=== PATIENT | male | born 1975 | race Hispanic/Latino ===

== ENCOUNTER → 2020-01-29 | Outpatient (CLI) | payer OTHER ==
[~2020-01-29] MED LIST: LISI-613 PO; PRAV20TA4 PO
== END | disposition home or self-care (01) ==
LOC: RAH 08:59
PROVIDERS: ATTEND Internal Medicine Cardiovascular Disease
DX: Z13.6 Encounter for screening for cardiovascular disorders (principal)
CPT/HCPCS: 75571

== ENCOUNTER 2021-02-16 06:15 | Day surgery (SDC) | payer OTHER ==
[2021-02-15 12:10] VITALS: BP 145/89
[2021-02-16] VITALS (11 sets, daily range): BP systolic 94–158; BP diastolic 60–99
[~2021-02-16] VITALS: Ht 167.6 cm; Wt 103.4 kg
[~2021-02-16 06:15] MED LIST changes: +CEFAZOLIN SODIUM 1 GM VIAL IVP SCH; +IBUP-2482 PO; -LISI-613 PO; +LISI1TAB32 PO
[2021-02-16] MEDS ORDERED: LACTATED RINGERS 1000ML 1,000 ML IV ONE (06:42)
[2021-02-16] MEDS ORDERED: PROPOFOL 10 MG/ML 20ML VIAL IV ONE (07:27)
[2021-02-16] MEDS ORDERED: FENTANYL CITRATE PF 50 MCG/1 ML 2ML VIAL ONE (07:27)
[2021-02-16] MEDS ORDERED: DEXAMETHASONE SOD PHOSPHATE 10MG/ML 1ML VIAL ONE (07:27)
[2021-02-16] MEDS ORDERED: MIDAZOLAM HCL 1 MG/ML 2ML VIAL ONE ×2 (07:27→08:25)
[2021-02-16] MEDS ORDERED: ONDANSETRON HCL 4 MG/2 ML VIAL ONE (07:27)
[2021-02-16] MEDS ORDERED: LIDOCAINE PF 2% 5ML ABBOJECT ONE (07:27)
[2021-02-16] MEDS ORDERED: MEPERIDINE-PF 25 MG/ML SYG ONE (07:31)
[2021-02-16] MEDS ORDERED: BUPIVACAINE/PF 0.5% 10ML VIAL ONE (07:58)
[2021-02-16] MEDS ORDERED: IOPAMIDOL 10 ML VIAL ONE (08:23)
== END 2021-02-16 10:00 | disposition home or self-care (01) ==
LOC: DAH 06:15
PROVIDERS: ATTEND Orthopaedic Surgery
DX: M16.51 Unilateral post-traumatic osteoarthritis, right hip (principal); M25.851 Other specified joint disorders, right hip; Z20.822 Contact with and (suspected) exposure to COVID-19; G89.29 Other chronic pain; I10 Essential (primary) hypertension; E66.01 Morbid (severe) obesity due to excess calories; G47.33 Obstructive sleep apnea (adult) (pediatric); Z83.3 Family history of diabetes mellitus; Z88.8 Allergy status to other drugs, medicaments and biological substances; Z90.49 Acquired absence of other specified parts of digestive tract; Z82.49 Family history of ischemic heart disease and other diseases of the circulatory system; Z72.89 Other problems related to lifestyle; Z87.891 Personal history of nicotine dependence
CPT/HCPCS: 20610; 73503; 77002; A4215; A4221; A4222; A4223 ×2; A4663; C9803; J0690; J1030; J1100; J2001; J2175; J2250 ×2; J2405; J2704; J3010; J3490; J7120; Q9966; U0003

== ENCOUNTER 2022-05-22 07:26 | Day surgery (SDC) | payer OTHER ==
[2022-05-19 09:59] LABS: BASOPHILS % (AUTO) 1.2 % (0.0-5.0); EOSINOPHILS % (AUTO) 1.6 % (0.0-8.0); HEMATOCRIT 44.7 % (42-54); LYMPHOCYTES % (AUTO) 32.6 % (21.0-51.0); MEAN CORPUSCULAR HEMOGLOBIN 28.9 pg (27.0-33.0); MEAN CORPUSCULAR HGB CONC 34.5 g/dL (32.0-36.0); MONOCYTES % (AUTO) 7.6 % (3.0-13.0); NEUTROPHILS % (AUTO) 56.8 % (40.0-77.0); PLATELET COUNT (AUTO) 269 K/uL (130-400); RED BLOOD CELL COUNT(AUTO) 5.32 MIL/uL (4.50-6.20); RED CELL DISTRIBUTION WIDTH 12.7 % (11.0-15.5); WHITE BLOOD COUNT (AUTO) 5.8 K/uL (4.8-10.8)
[2022-05-19 10:15] LABS: CREATININE 0.9 mg/dL (0.5-1.5); POTASSIUM 4.6 mmol/L (3.5-5.1)
[2022-05-19 10:20] VITALS: BP 197/108
[2022-05-22] VITALS (10 sets, daily range): BP systolic 134–184; BP diastolic 82–118
[~2022-05-22] VITALS: Ht 167.6 cm; Wt 101.0 kg
[~2022-05-22 07:26] MED LIST changes: +BUPIVACAINE/PF 0.5% 30ML VIAL ONE; +CARB1DRO40 OP; +CARV25TA PO; -IBUP-2482 PO; +ISOS60TA77 PO; +KETO5DRO6 OP; +LIDOCAINE HCL 1% 20 ML VIAL ONE; -LISI1TAB32 PO; +LOSA50TA64 PO; -PRAV20TA4 PO; +diclofenac TP
[2022-05-22] MEDS ORDERED: IOPAMIDOL 10 ML VIAL ONE (07:53)
[2022-05-22] MEDS ORDERED: LACTATED RINGERS 1000ML 1,000 ML IV ONE (08:08)
[2022-05-22] MEDS ORDERED: FENTANYL CITRATE PF 50 MCG/1 ML 2ML VIAL ONE (08:37)
[2022-05-22] MEDS ORDERED: PROPOFOL 10 MG/ML 20ML VIAL IV ONE (08:37)
[2022-05-22] MEDS ORDERED: MIDAZOLAM HCL 1 MG/ML 2ML VIAL ONE (08:37)
[2022-05-22] MEDS ORDERED: VANCOMYCIN 1G VIAL ONE (09:58)
== END 2022-05-22 10:10 | disposition home or self-care (01) ==
LOC: DAH 07:26
PROVIDERS: ATTEND Orthopaedic Surgery
DX: M16.51 Unilateral post-traumatic osteoarthritis, right hip (principal); G89.29 Other chronic pain; I10 Essential (primary) hypertension; G47.33 Obstructive sleep apnea (adult) (pediatric); Z90.49 Acquired absence of other specified parts of digestive tract; Z98.890 Other specified postprocedural states; Z87.891 Personal history of nicotine dependence; Z82.49 Family history of ischemic heart disease and other diseases of the circulatory system; Z83.3 Family history of diabetes mellitus
CPT/HCPCS: 87426; 80048; 85025; 36415; 20610; 73503; J7120; J3370; J3010; J0690; J2250; J2704; J1030; J3490; Q9966; A5120; A4215; A4223; A4222; A4221

== ENCOUNTER 2023-03-30 05:52 | Day surgery (SDC) | payer OTHER ==
[2023-03-28 09:32] LABS: BASOPHILS % (AUTO) 1.2 % (0.0-5.0); EOSINOPHILS % (AUTO) 1.7 % (0.0-8.0); LYMPHOCYTES % (AUTO) 35.5 % (21.0-51.0); MEAN CORPUSCULAR HEMOGLOBIN 29.1 pg (27.0-33.0); MEAN CORPUSCULAR HGB CONC 34.4 g/dL (32.0-36.0); MEAN CORPUSCULAR VOLUME 84.6 fL (79-99); MONOCYTES % (AUTO) 9.2 % (3.0-13.0); NEUTROPHILS % (AUTO) 51.8 % (40.0-77.0); PLATELET COUNT (AUTO) 249 K/uL (130-400); RED BLOOD CELL COUNT(AUTO) 5.08 MIL/uL (4.50-6.20); RED CELL DISTRIBUTION WIDTH 13.1 % (11.0-15.5); WHITE BLOOD COUNT (AUTO) 5.2 K/uL (4.8-10.8)
[2023-03-28 09:39] LABS: ALBUMIN 3.5 g/dL (3.5-5.0); CARBON DIOXIDE 27 mmol/L (21-32); CHLORIDE 104 mmol/L (101-111); CREATININE 0.7 mg/dL (0.5-1.5); CRP QUANTITATIVE < 2.00 mg/L (0.00-9.0); GLOMERULAR FILTR. RATE CALC 115 mL/min (>90); GLUCOSE,RANDOM 113 mg/dL (70-105); POTASSIUM 4.1 mmol/L (3.5-5.1); SODIUM SERUM 139 mmol/L (136-145); UREA NITROGEN, BLOOD 11 mg/dL (7-18)
[2023-03-28 09:40] VITALS: BP 170/94
[2023-03-30] VITALS (13 sets, daily range): BP systolic 115–135; BP diastolic 51–86
[~2023-03-30] VITALS: Ht 167.6 cm; Wt 111.5 kg
[~2023-03-30 05:52] MED LIST changes: -BUPIVACAINE/PF 0.5% 30ML VIAL ONE; -CEFAZOLIN SODIUM 1 GM VIAL IVP SCH; +KETO-99 OP; -KETO5DRO6 OP; -LIDOCAINE HCL 1% 20 ML VIAL ONE
[2023-03-30] MEDS ORDERED: CEFAZOLIN SODIUM 2 GM VIAL ONE (06:20)
[2023-03-30] MEDS ORDERED: LACTATED RINGERS 1000ML 1,000 ML IV ONE (06:20)
[2023-03-30] MEDS ORDERED: AEC81 PO (06:40)
[2023-03-30] MEDS ORDERED: ROSU40TA21 PO (06:40)
[2023-03-30] MEDS ORDERED: AMLO-257 PO (06:40)
[2023-03-30] MEDS ORDERED: BUPIVACAINE/PF 0.25% 30ML VIAL IJ ONE (07:18)
[2023-03-30] MEDS ORDERED: LIDOCAINE PF 100MG/5ML (2%) SYRINGE 5ML ONE (07:38)
[2023-03-30] MEDS ORDERED: DEXAMETHASONE SOD PHOSPHATE 10MG/ML 1ML VIAL ONE (07:40)
[2023-03-30] MEDS ORDERED: MIDAZOLAM HCL 1 MG/ML 2ML VIAL ONE (07:40)
[2023-03-30] MEDS ORDERED: ONDANSETRON 4MG INJ ONE (07:40)
[2023-03-30] MEDS ORDERED: PROPOFOL 10 MG/ML 20ML VIAL IV ONE (07:40)
[2023-03-30] MEDS ORDERED: FENTANYL CITRATE PF 50 MCG/1 ML 2ML VIAL ONE (07:40)
[2023-03-30] MEDS ORDERED: LIDOCAINE HCL 1% 20 ML VIAL ONE (08:14)
[2023-03-30] MEDS ORDERED: IOHEXOL 180 MG/ML 20 ML VIAL ONE (08:43)
== END 2023-03-30 10:30 | disposition home or self-care (01) ==
LOC: DAH 05:52
PROVIDERS: ATTEND Student in an Organized Health Care Education/Training Program
DX: M16.4 Bilateral post-traumatic osteoarthritis of hip (principal); Z20.822 Contact with and (suspected) exposure to COVID-19; I10 Essential (primary) hypertension; G47.33 Obstructive sleep apnea (adult) (pediatric); E66.01 Morbid (severe) obesity due to excess calories; Z79.01 Long term (current) use of anticoagulants; Z79.899 Other long term (current) drug therapy; Z98.890 Other specified postprocedural states; Z90.49 Acquired absence of other specified parts of digestive tract; Z68.39 Body mass index [BMI] 39.0-39.9, adult; Z79.82 Long term (current) use of aspirin; Z82.49 Family history of ischemic heart disease and other diseases of the circulatory system; Z83.3 Family history of diabetes mellitus; Z87.891 Personal history of nicotine dependence
CPT/HCPCS: 87426; 82040; 80048; 85025; 84134; 86140; 36415; 20610; 77002; 73521; A4663; J7120; J3010; J1100; J3490; J2001; J2250; J2704; J2405; J1030 ×2; Q9965; J0690; A4215; A4223; A4222; A4221

== ENCOUNTER 2023-08-03 05:45 | Day surgery (SDC) | payer OTHER ==
[2023-08-01 09:20] VITALS: BP 208/107; PULSE 78; RESP 11
[2023-08-01 09:27] LABS: BASOPHILS # (AUTO) 0.08 K/uL (0.00-0.20); BASOPHILS % (AUTO) 1.5 % (0.0-5.0); EOSINOPHILS # (AUTO) 0.06 K/uL (0.00-0.70); EOSINOPHILS % (AUTO) 1.1 % (0.0-8.0); HEMATOCRIT 45.3 % (42-54); IMMATURE GRANULOCYTE ABSOLUTE 0.03 K/uL (0-1); LYMPHOCYTES # (AUTO) 1.6 K/uL (1.0-4.8); MEAN CORPUSCULAR HGB CONC 33.6 g/dL (32.0-36.0); MEAN CORPUSCULAR VOLUME 86.3 fL (79-99); MONOCYTES # (AUTO) 0.5 K/uL (0.1-1.0); MONOCYTES % (AUTO) 9.4 % (3.0-13.0); NEUTROPHILS # (AUTO) 3.2 K/uL (1.8-7.7); NEUTROPHILS % (AUTO) 58.4 % (40.0-77.0); PLATELET COUNT (AUTO) 265 K/uL (130-400); RED BLOOD CELL COUNT(AUTO) 5.25 MIL/uL (4.50-6.20); RED CELL DISTRIBUTION WIDTH 12.8 % (11.0-15.5); WHITE BLOOD COUNT (AUTO) 5.4 K/uL (4.8-10.8)
[2023-08-01 09:36] LABS: ALBUMIN 3.8 g/dL (3.5-5.0); CREATININE 0.8 mg/dL (0.5-1.5); POTASSIUM 4.1 mmol/L (3.5-5.1)
[2023-08-03] VITALS (17 sets, daily range): BP systolic 97–165; BP diastolic 50–102; PULSE 66–76; RESP 14–20
[~2023-08-03] VITALS: Ht 167.6 cm; Wt 114.5 kg
[~2023-08-03 05:45] MED LIST changes: +AEC81 PO; +ALLO100T PO; +AMLO-257 PO; -CARB1DRO40 OP; +CARBOXYMETHYLCE OU; +CHOL200074 PO; +ESCI-8 PO; +FLUT1BLS12 IH; +GABA-529 PO; -ISOS60TA77 PO; -KETO-99 OP; +KETO-99 OU; +LOSA100T59 PO; -LOSA50TA64 PO; +OMEP20CA12 PO; +ROSU40TA21 PO; +albuterol IH; -diclofenac TP
[2023-08-03] MEDS ORDERED: LACTATED RINGERS 1000ML 1,000 ML IV ONE (06:47)
[2023-08-03] MEDS ORDERED: FENTANYL CITRATE PF 50 MCG/1 ML 5ML AMP IV ONE (08:09)
[2023-08-03] MEDS ORDERED: BUPIVACAINE/PF 0.5% 30ML VIAL ONE (08:16)
[2023-08-03] MEDS ORDERED: PROPOFOL 10 MG/ML 20ML VIAL IV ONE (08:25)
[2023-08-03] MEDS ORDERED: IOHEXOL 180 MG/ML 20 ML VIAL IVP ONE (08:36)
[2023-08-03] MEDS ORDERED: FENTANYL CITRATE PF 50 MCG/1 ML 2ML VIAL ONE (08:38)
== END 2023-08-03 11:18 | disposition home or self-care (01) ==
LOC: DAH 05:45
PROVIDERS: ATTEND Student in an Organized Health Care Education/Training Program
DX: M16.51 Unilateral post-traumatic osteoarthritis, right hip (principal); I10 Essential (primary) hypertension; M10.9 Gout, unspecified; M25.859 Other specified joint disorders, unspecified hip; G89.29 Other chronic pain; Z72.89 Other problems related to lifestyle; Z79.899 Other long term (current) drug therapy; Z79.82 Long term (current) use of aspirin; Z87.891 Personal history of nicotine dependence; Z83.3 Family history of diabetes mellitus; Z82.49 Family history of ischemic heart disease and other diseases of the circulatory system; Z90.49 Acquired absence of other specified parts of digestive tract; Z98.890 Other specified postprocedural states
CPT/HCPCS: 82040; 80048; 85025; 84134; 86140; 36415; 20610; 73503; A4663; J7120; J3010 ×2; J2704; J1030; J0665; Q9965; A4215; A4223; A4222; A4221; J3490

== ENCOUNTER 2024-02-01 06:23 | Day surgery (SDC) | payer OTHER ==
[2024-01-30 10:09] LABS: BASOPHILS # (AUTO) 0.06 K/uL (0.00-0.20); BASOPHILS % (AUTO) 1.1 % (0.0-5.0); EOSINOPHILS # (AUTO) 0.06 K/uL (0.00-0.70); EOSINOPHILS % (AUTO) 1.1 % (0.0-8.0); HEMATOCRIT 42.5 % (42-54); IMMATURE GRANULOCYTE ABSOLUTE 0.01 K/uL (0-1); LYMPHOCYTES # (AUTO) 1.8 K/uL (1.0-4.8); LYMPHOCYTES % (AUTO) 34.7 % (21.0-51.0); MEAN CORPUSCULAR HEMOGLOBIN 28.6 pg (27.0-33.0); MEAN CORPUSCULAR HGB CONC 34.4 g/dL (32.0-36.0); MEAN CORPUSCULAR VOLUME 83.2 fL (79-99); MONOCYTES # (AUTO) 0.4 K/uL (0.1-1.0); MONOCYTES % (AUTO) 7.9 % (3.0-13.0); NEUTROPHILS # (AUTO) 2.9 K/uL (1.8-7.7); PLATELET COUNT (AUTO) 306 K/uL (130-400); RED BLOOD CELL COUNT(AUTO) 5.11 MIL/uL (4.50-6.20); RED CELL DISTRIBUTION WIDTH 13.2 % (11.0-15.5); WHITE BLOOD COUNT (AUTO) 5.3 K/uL (4.8-10.8)
[2024-01-30 10:18] LABS: CREATININE 0.7 mg/dL (0.5-1.3)
[2024-01-30 10:19] VITALS: BP 169/98; PULSE 74; RESP 18
[2024-02-01] VITALS (16 sets, daily range): BP systolic 88–145; BP diastolic 46–83; PULSE 59–69; RESP 13–19
[~2024-02-01] VITALS: Ht 167.6 cm; Wt 113.7 kg
[~2024-02-01 06:23] MED LIST changes: -AEC81 PO; -ALLO100T PO; -CARBOXYMETHYLCE OU; +CHLO25TA3 PO; -ESCI-8 PO; -FLUT1BLS12 IH; -GABA-529 PO; -KETO-99 OU; -OMEP20CA12 PO; -ROSU40TA21 PO; +ROSU40TA70 PO; +TRAM50TA4 PO; -albuterol IH; +vitamin k PO
[2024-02-01] MEDS ORDERED: ACETAMINOPHEN 1,000 MG/100 ML VIAL IV ONE (06:55)
[2024-02-01] MEDS ORDERED: FAMOTIDINE 20MG VIAL IV ONE (06:55)
[2024-02-01] MEDS: CEFAZOLIN SODIUM 2 GM VIAL ONE (06:58)
[2024-02-01] MEDS: LACTATED RINGERS 1000ML 1,000 ML IV ONE (06:58)
[2024-02-01] MEDS ORDERED: PROPOFOL 10 MG/ML 20ML VIAL IV ONE (07:03)
[2024-02-01] MEDS ORDERED: LIDOCAINE PF 100MG/5ML (2%) SYRINGE 5ML ONE (07:03)
[2024-02-01] MEDS ORDERED: FENTANYL CITRATE PF 50 MCG/1 ML 2ML VIAL ONE (07:04)
[2024-02-01] MEDS: BUPIVACAINE/PF 0.5% 30ML VIAL ONE (07:44)
[2024-02-01] MEDS: DEXAMETHASONE SOD PHOSPHATE 10MG/ML 1ML VIAL ONE (07:44)
[2024-02-01] MEDS ORDERED: ONDANSETRON 4MG INJ ONE (07:46)
== END 2024-02-01 09:25 | disposition home or self-care (01) ==
LOC: DAH 06:23
PROVIDERS: ATTEND Student in an Organized Health Care Education/Training Program
DX: M16.0 Bilateral primary osteoarthritis of hip (principal); I10 Essential (primary) hypertension; K21.9 Gastro-esophageal reflux disease without esophagitis; G47.33 Obstructive sleep apnea (adult) (pediatric); E66.01 Morbid (severe) obesity due to excess calories; M10.9 Gout, unspecified; Z79.899 Other long term (current) drug therapy; Z79.01 Long term (current) use of anticoagulants; Z90.49 Acquired absence of other specified parts of digestive tract; Z98.890 Other specified postprocedural states; Z82.49 Family history of ischemic heart disease and other diseases of the circulatory system; Z83.3 Family history of diabetes mellitus; Z68.41 Body mass index [BMI] 40.0-44.9, adult
CPT/HCPCS: 80048; 85025; 36415; 20610; 77002; 73521; J0665; A4663; J7120; J3490; J3010; J1100; J2001; J2704; J2405; J0690; A5120; A4215; A4223; A4222; A4221; 27093; J1030

== ENCOUNTER 2024-12-22 05:42 | Observation (INO) | payer OTHER ==
[2024-12-17 10:30] VITALS: BP 138/69; PULSE 75; RESP 18; TEMP 97.2
--- NOTE | 2024-12-17 10:30 | NUR ---
preop incentive spirometry done during preop. as per respiratory therapist pts level was [id number]
[2024-12-22] VITALS (31 sets, daily range): BP systolic 99–144; BP diastolic 54–96; PULSE 60–99; RESP 13–20; TEMP 97.2–99.2; O2SAT 99
[~2024-12-22] VITALS: Ht 167.6 cm; Wt 117.9 kg
[~2024-12-22 05:42] MED LIST changes: -AMLO-257 PO; +AMLO-258 PO; +CELE-125 PO; -CHOL200074 PO; +FLUT1BLS12 IH; +NALO4SPR NS; -ROSU40TA70 PO; +ROSU40TA88 PO; -TRAM50TA4 PO; +albuterol IH; +buprenorphine TP; +ketorolac INJ; +vitamin d PO; -vitamin k PO
[2024-12-22] MEDS: FAMOTIDINE 20MG VIAL IV ONE (06:47)
[2024-12-22] MEDS: acetaMINOPHEN 100 ML ONE (06:47)
[2024-12-22] MEDS ORDERED: ROPivacaine 0.5% 5MG/ML 30ML ONE (06:49)
[2024-12-22] MEDS ORDERED: ketaMINE 50MG/ML SYRINGE 50 MG/ML DISP.SYRIN ONE (06:49)
[2024-12-22] MEDS ORDERED: dexmedeTOMIDine HCL 200 MCG/2 ML VIAL IV ONE (06:49)
[2024-12-22] MEDS: ALBUTEROL 0.083% 2.5 MG/3 ML INH IH ONE ×2 (06:54→09:20)
[2024-12-22] MEDS ORDERED: FENTanyl CITRate PF 50 MCG/1 ML 2ML VIAL ONE (06:55)
[2024-12-22] MEDS ORDERED: proPOFol 10 MG/ML 20ML VIAL IV ONE (06:55)
[2024-12-22] MEDS ORDERED: rocuRONium bROMide 10MG/1ML 5ML VL ONE ×3 (06:55→08:21)
[2024-12-22] MEDS ORDERED: LIDOCAINE HCL-MPF 2% 10ML AMP IJ ONE (06:55)
[2024-12-22] MEDS: LACTATED RINGERS 1000ML 1,000 ML IV ONE (06:56)
[2024-12-22] MEDS: ceFAZolin SODIUM 2 GM VIAL ONE (06:56)
[2024-12-22] MEDS ORDERED: ALBUTEROL 0.042% 1.25MG/3ML IH ONE (07:00)
[2024-12-22] MEDS ORDERED: ondanSETRON 4MG INJ IVP PRN (07:30)
[2024-12-22] MEDS ORDERED: ondanSETRON 4MG INJ ONE (07:30)
[2024-12-22] MEDS ORDERED: FERROUS FUMARATE 324 MG TABLET PO PRN (07:30)
[2024-12-22] MEDS ORDERED: DiphenhydrAMINE HCL 50 MG/ML VIAL IVP PRN (07:30)
[2024-12-22] MEDS ORDERED: PoTASSium chl 10% ELIXIR 20MEQ 20 MEQ/15 ML UDCUP PO PRN (07:30)
[2024-12-22] MEDS ORDERED: traMADol HCL 50 MG TABLET PO PRN (07:30)
[2024-12-22] MEDS ORDERED: PoTASSium chloRIDE 20MEQ/100ML 100 ML IV PRN (07:30)
[2024-12-22] MEDS ORDERED: dexaMETHasone SOD PHOSPHATE 10MG/ML 1ML VIAL ONE (07:30)
[2024-12-22] MEDS ORDERED: HYDROcodone/APAP 5/325 1 TAB TABLET PO PRN ×2 (07:30→08:00)
[2024-12-22] MEDS ORDERED: PoTASSium chloRIDE 20MEQ ER 20 MEQ ERTAB PO PRN (07:30)
--- NOTE | 2024-12-22 07:32 | DS ---
Discharge Summary Hospital Course Summary: The patient was admitted to the hospital postoperatively on 12/22/2024 after undergoing right total hip arthroplasty. They did well with routine postoperative pain control. They worked well with physical therapy. They developed some acute blood loss anemia but remained asymptomatic. The hospital course was otherwise uncomplicated. They were subsequently able to be discharged on postoperative day [] once discharge arrangements were made with home health physical therapy. Assessment/Plan: ASSESSMENT: [ ] PLAN: [ ] Home Medications: Reported Medications Naloxone HCl (Narcan) 4 Mg/Actuation [place], 4 MG NS AD PRN for reversal, SPRAY 12/17/24 [albuterol] No Conflict Check, 2 PUFF IH AD PRN for SHORTNESS OF BREATH/WHEEZING 12/17/24 [ketorolac] No Conflict Check, 30 MG INJ AD PRN for PAIN 12/17/24 Fluticasone Propion/Salmeterol (Fluticasone-Salmeterol 250-50) 250 Mcg-50 Mcg/Dose Blst.w.dev, 1 EACH IH BID PRN for SHORTNESS OF BREATH/WHEEZING 12/17/24 Celecoxib (Celecoxib) 200 Mg Capsule, 200 MG PO AM, CAP 12/17/24 [buprenorphine] No Conflict Check, 15 MCG TP weekly 12/17/24 Amlodipine Besylate (Amlodipine Besylate) 10 Mg Tablet, 10 MG PO BID for 30 Days, #30 TAB 0 Refills 12/17/24 [vitamin d] No Conflict Check, 93113 UNIT PO DAILY 07/09/24 Chlorthalidone (Chlorthalidone) 25 Mg Tablet, 25 MG PO AM, TAB 01/30/24 Losartan Potassium (Losartan Potassium) 100 Mg Tablet, 100 MG PO AM, TAB 08/01/23 Rosuvastatin Calcium (Rosuvastatin Calcium) 40 Mg Tablet, 20 MG PO HS, TAB 03/30/23 Carvedilol (Carvedilol) 25 Mg Tablet, 25 MG PO BID, TAB 05/19/22 Discontinued Reported Medications [vitamin k] No Conflict Check, 1 TAB PO DAILY 01/30/24 Tramadol Hcl (Tramadol HCl) 50 Mg Tablet, 50 MG PO BID PRN for PAIN, TAB 01/30/24 Amlodipine Besylate (Amlodipine Besylate) 5 Mg Tablet, 5 MG PO HS, TAB 03/30/23 HALIE QUINONEZ MD Dec 22, 2024 07:32
[2024-12-22] MEDS: TRANEXAMIC ACID 1000MG/10ML ONE (07:35)
[2024-12-22] MEDS ORDERED: phenylEPHRINE HCL 10 MG/ML 1ML VIAL IV ONE (07:46)
[2024-12-22] MEDS ORDERED: GLYCOPYRROLATE 0.2 MG/ML 5 ML VIAL ONE (08:11)
[2024-12-22] MEDS ORDERED: SALMETEROL IH PRN (08:30)
[2024-12-22] MEDS ORDERED: FLUTICASONE PROPION IH PRN (08:30)
[2024-12-22] MEDS: GABApentin 100 MG CAPSULE PO SCH (09:00)
[2024-12-22] MEDS: amLODIPine 5 MG TAB PO SCH (09:00)
[2024-12-22] MEDS ORDERED: ALBUTEROL 0.083% 2.5 MG/3 ML INH IH PRN (09:00)
[2024-12-22] MEDS: CeleCOXib 200 MG CAP PO SCH (09:00)
[2024-12-22] MEDS: carVEDIlol 25 MG TABLET PO SCH (09:00)
[2024-12-22] MEDS: LoSARTan 100 MG TABLET PO SCH (09:00)
[2024-12-22] MEDS: SUGAMMADEX SODIUM 200 MG/2 ML VIAL IV ONE (09:07)
--- NOTE | 2024-12-22 09:38 | OP ---
Operative Note: DATE OF PROCEDURE: 12/22/24 SURGEON: HALIE QUINONEZ MD FIRER LOCOMOTIVE CRANE: Nati Chance ANESTHESIA: General and fascia iliaca block ANESTHESIOLOGIST/ASSEMBLER SURGICAL GARMENT: Dolly Calvin CRNA PREOPERATIVE DIAGNOSIS: Right hip osteoarthritis POSTOPERATIVE DIAGNOSIS: Right hip osteoarthritis PROCEDURE: Right total hip arthroplasty ESTIMATED BLOOD LOSS: 200 cc INDICATIONS: 49-year-old male with bilateral hip osteoarthritis more symptomatic on the right than the left. Patient is failing conservative management with numerous intra-articular steroid injections applied at this point. After discussion of the risks, benefits, and alternatives, the patient voluntarily agreed to undergo the aforementioned procedure. IMPLANTS: López [employer] Nephew 56 mm R3 acetabular component with 6.5 mm screws x2 and central hole cover, 0 degree polyethylene liner, size six standard offset anthology stem with a 40 mm Oxinium +0 head DESCRIPTION OF PROCEDURE: Patient was properly identified in the preoperative holding area. Surgical site marking was verified and surgery consent reviewed. The patient was then taken to the operating room and placed in supine position on the OR table. After induction of general anesthesia, preoperative antibiotics were given. The patient was then transitioned in the lateral decubitus position with the right side up. All bony prominences were well-padded. Right lower extremity was then prepped and draped in the usual sterile fashion. Surgical time out was done verifying correct surgery, side, site, and location to be performed. We then began the procedure by making approximately 15 cm long incision centered over the greater trochanter. Here we came sharply through skin down to the fascia. Hemostasis was then achieved using Bovie electrocautery. We then incised fascia in line with the skin incision and finger split the tensor muscle proximally. We then placed our Charnley retractor. At this point we identified the vastus ridge and began elevating the full-thickness soft tissue flap off of the vastus ridge, splitting the vastus lateralis and gluteus muscles as necessary. We then proceeded to externally rotate the femur while making this flap. We resected part of the anterior capsule. The femoral head and neck was then delivered into view. We then dislocated the hip and performed a femoral neck osteotomy approximately half fingerbreadth proximal lesser trochanter. We then placed our retractors around the superior and anterior portion of the acetabulum and began to remove the labrum circumferentially. We then began reaming the acetabulum where we reamed up to a size 55 ensuring appropriate anteversion and abduction. We then proceeded to trial with the size 56 acetabular component and this appeared to sit well. We opened our size 56 acetabular component and after irrigating out the wound malleted this into place. It appeared to have good press-fit however we elected to place two of the 6.5 mm screws. We drilled and filled the screws in standard fashion in the posterior superior portion of the cup. We then placed the manhole cover on the center of the cup. The wound was thoroughly irrigated out further and we placed the acetabular liner and impacted this in place in standard fashion. We then proceeded to reposition our retractors to elevate the proximal femur out of the wound. We then used the box chisel and canal finder to began preparing the femoral side and sequentially broached up to the aforementioned size stem. Once we felt we had good fit, fill, and control of the femur with the stem in place we then used our trial head component and reduce the hip. Upon reduction, we had appropriate soft tissue tensioning, limb length and stable range of motion. We therefore dislocated the hip once more removed our trial components thoroughly irrigated the out the wound and placed our final components in standard fashion. The hip was then reduced with the final components in place. It was found to be stable through range of motion with appropriate soft tissue tensioning and appropriate limb length. At this point we placed a bump under the knee and the foot on the male with a stack of towels to allow for internal rotation. We repaired the abductors back to the greater trochanter using #5 Ethibond. We then repaired the rent in the vastus lateralis and gluteus muscles using #1 Vicryl in a running fashion. We removed our Charnley retractor and began to repair the IT band using #1 Vicryl in interrupted [id number] fashion. At this point we began to close her sub cutaneous tissue using 2-0 Vicryl. Running 3-0 Monocryl in subcuticular fashion with Dermabond placed over this for the skin. Island barrier dressing was then applied. Patient was returned to supine position with abduction pillow placed, awakened from anesthesia, and taken to the recovery room in stable condition. HALIE QUINONEZ MD Dec 22, 2024 09:38
[2024-12-22] MEDS: ketOROlac 15MG/ML VIAL (15MG/ML) IV SCH ×2 (10:17→20:20)
[2024-12-22] MEDS: hydroMORPHone 1 MG INJ ONE ×2 (10:40→11:05)
[2024-12-22] MEDS: ketOROlac 15MG/ML VIAL (15MG/ML) ONE (10:59)
[2024-12-22] MEDS: 0.9%NACL 1000ML 1,000 ML IV SCH (11:17)
[2024-12-22] MEDS: 0.9%NACL 1000ML 1,000 ML IV ONE (11:18)
--- NOTE | 2024-12-22 11:30 | NUR ---
PATIENT ARRIVED TO UNIT
[2024-12-22] MEDS: HYDROcodone/APAP 5/325 1 TAB TABLET PO PRN (12:09)
--- NOTE | 2024-12-22 12:14 | HMCIMG ---
HIP BILAT 2VW HISTORY: Hip surgery COMPARISON: None TECHNIQUE: 3 images of bilateral hips were obtained. FINDINGS: Right total hip replacement changes are seen. Alignment appears to be grossly adequate. Left hip joint space narrowing is seen. There is no acute displaced fracture or dislocation. Degenerative changes are seen. IMPRESSION: 1. Findings as described above.
[2024-12-22] MEDS: polyETHYLene GLYCol 3350 17 GM POWD.PACK PO SCH (12:21)
[2024-12-22] MEDS: doCUSate SODIUM 100 MG CAP PO SCH (12:21)
--- NOTE | 2024-12-22 12:29 | HMCIMG ---
HIP UNILAT 4VW RIGHT REASON: ORIF RIGHT TRICIA, SX. COMPARISON: None TECHNIQUE: Fluoroscopic images of right hip were obtained. FINDINGS: Please see procedure report by referring physician. IMPRESSION: Intraoperative films.
[2024-12-22] MEDS: ceFAZolin SODIUM 2 GM VIAL IVP SCH (12:49)
[2024-12-22] MEDS: CYCLOBENZAPRINE HCL 10 MG TABLET PO PRN (16:17)
[2024-12-22] MEDS: atorVAStatin 40 MG TABLET PO SCH (20:19)
[2024-12-23] VITALS (8 sets, daily range): BP systolic 106–122; BP diastolic 58–68; PULSE 72–89; RESP 18–20; TEMP 98.3–98.8; O2SAT 96–99
--- NOTE | 2024-12-23 03:07 | NUR ---
nurse note patient alert and oriented times 4. plan of care discussed with him and he verbalized understanding. patient has intermittent right hip severe pain relieved by hydrocodone. He has slept about 5 hours tonight. He has not tried to get up to the restroom. He uses the urinal. Ice packs applied at midnight and will apply in the am when we take him to the chair. Call light within reach, scd's on, bed alarm on, 2 side rails up. will continue to monitor patient.
[2024-12-23 05:41] LABS: HEMATOCRIT 32.9 % (42-54); MEAN CORPUSCULAR HGB CONC 34.3 g/dL (32.0-36.0); MEAN CORPUSCULAR VOLUME 84.4 fL (79-99); RED BLOOD CELL COUNT(AUTO) 3.9 MIL/uL (4.50-6.20); RED CELL DISTRIBUTION WIDTH 13.1 % (11.0-15.5); WHITE BLOOD COUNT (AUTO) 12.1 K/uL (4.8-10.8)
[2024-12-23 06:12] LABS: CREATININE 0.9 mg/dL (0.5-1.3); POTASSIUM 3.9 mmol/L (3.5-5.1)
[2024-12-23] MEDS: CALCIUM CARB 500MG PO PRN (06:18)
--- NOTE | 2024-12-23 06:29 | NUR ---
chair took patient to the chair this morning. he tolerated it well. ice pack applied to right hip. scd's on, call light within reach, patient washing his teeth at this time.
[2024-12-23] MEDS: ASPIRIN 325MG EC TAB PO SCH (08:10)
--- NOTE | 2024-12-23 08:36 | PN ---
Ortho postop day one. This morning patient is awake alert and oriented. He is out of bed seated in his chair reporting adequate pain control. Vital signs stable he has been afebrile. Laboratory results reviewed. Noted to have a drop in hemoglobin and hematocrit as expected after total hip arthroplasty. Patient is asymptomatic. We will continue to observe and address per protocol as necessary. Voiding on his own. Performing incentive spirometry as instructed with returned demonstration adequate. Operative findings discussed with the patient. He currently has ice present to the [facility]. Dressing is intact. Distal neurovascular exam intact. Gastrocnemius soft nontender. Negative Homans. Ambulated within the confines of his room and in the hallway with therapy yesterday and is pending further physical therapy this morning. Anticipated discharge goal is home health/PT. Assessment: Status post right total hip arthroplasty. Asymptomatic acute postoperative blood loss anemia. Plan: Continue with Dr. Marques's total hip arthroplasty and discharge planning. Asymptomatic acute postoperative blood loss anemia addressed with protocol as necessary Vitals/Labs Vital Signs Date Time Temp Pulse Resp B/P (MAP) Pulse Ox O2 Delivery O2 Flow Rate FiO2 12/23/24 08:09 122/68 12/23/24 08:00 99 Room Air* 0 21 12/23/24 07:54 98.2 73 20 Laboratory Tests 12/23/24 05:05 Medications Current Medications Cefazolin Sodium 2 gm STK-MED ONCE .ROUTE Last administered on 12/22/24at 07:40; Start 12/22/24 at 06:12; Stop 12/22/24 at 06:12; Status DC Lactated Ringer's 1,000 ml @ As Directed STK-MED ONCE IV Last administered on 12/22/24at 06:56; Start 12/22/24 at 06:12; Stop 12/22/24 at 06:12; Status DC Acetaminophen 100 ml @ As Directed STK-MED ONCE .ROUTE; Start 12/22/24 at 06:47; Stop 12/22/24 at 06:47; Status DC Famotidine 20 mg STK-MED ONCE IV; Start 12/22/24 at 06:47; Stop 12/22/24 at 06:47; Status DC Albuterol Sulfate 2.5 mg STK-MED ONCE IH Last administered on 12/22/24at 06:54; Start 12/22/24 at 06:47; Stop 12/22/24 at 06:47; Status DC Dexmedetomidine HCl 200 mcg STK-MED ONCE IV; Start 12/22/24 at 06:49; Stop 12/22/24 at 06:49; Status DC Ropivacaine 150 mg STK-MED ONCE .ROUTE; Start 12/22/24 at 06:49; Stop 12/22/24 at 06:49; Status DC Ketamine HCl 50 mg STK-MED ONCE .ROUTE; Start 12/22/24 at 06:49; Stop 12/22/24 at 06:49; Status DC Lidocaine HCl 1 ml STK-MED ONCE IJ; Start 12/22/24 at 06:55; Stop 12/22/24 at 06:55; Status DC Propofol 200 mg STK-MED ONCE IV; Start 12/22/24 at 06:55; Stop 12/22/24 at 06:55; Status DC Rocuronium Viola 50 mg STK-MED ONCE .ROUTE; Start 12/22/24 at 06:55; Stop 12/22/24 at 06:55; Status DC Fentanyl Citrate 100 mcg STK-MED ONCE .ROUTE; Start 12/22/24 at 06:55; Stop 12/22/24 at 06:55; Status DC Albuterol Sulfate 1.25 ONCE ONCE IH; Start 12/22/24 at 07:00; Stop 12/22/24 at 07:02; Status DC Albuterol Sulfate 2.5MG ONCE ONCE IH; Start 12/22/24 at 07:30; Stop 12/22/24 at 07:31; Status DC Tranexamic Acid 1,000 mg STK-MED ONCE .ROUTE Last administered on 12/22/24at 07:35; Start 12/22/24 at 07:04; Stop 12/22/24 at 07:09; Status DC Rocuronium Viola 50 mg STK-MED ONCE .ROUTE; Start 12/22/24 at 07:19; Stop 12/22/24 at 07:19; Status DC Sodium Chloride 1,000 ml @ 100 mls/hr Q10H IV Last administered on 12/22/24at 21:28; Start 12/22/24 at 07:30; Stop 12/23/24 at 07:29; Status DC Polyethylene Glycol 17 gm DAILY PO Last administered on 12/23/24at 08:08; Start 12/22/24 at 09:00; Stop 01/21/25 at 08:59 Bisacodyl 10 mg DAILY PRN RC; Start 12/25/24 at 07:30; Stop 01/24/25 at 07:29 Ketorolac Tromethamine 15 mg Q6H PRN IV; Start 12/23/24 at 10:00; Stop 12/28/24 at 09:59 Ferrous Fumarate 324 mg DAILY PRN PO; Start 12/22/24 at 07:30; Stop 01/21/25 at 07:29 Calcium Carbonate 500 mg Q12H PRN PO Last administered on 12/23/24at 06:18; Start 12/22/24 at 07:30; Stop 01/21/25 at 07:29 Diphenhydramine HCl 25 mg Q6H PRN IVP; Start 12/22/24 at 07:30; Stop 01/21/25 at 07:29 Ondansetron HCl 4 mg Q6H PRN IVP; Start 12/22/24 at 07:30; Stop 01/21/25 at 07:29 Cefazolin Sodium 2 gm Q8H IVP Last administered on 12/22/24at 20:18; Start 12/22/24 at 12:30; Stop 12/22/24 at 20:31; Status DC Gabapentin 100 mg TID PO; Start 12/22/24 at 09:00; Stop 01/21/25 at 08:59 Cyclobenzaprine HCl 5 mg Q8H PRN PO Last administered on 12/23/24at 06:18; Start 12/22/24 at 07:30; Stop 01/21/25 at 07:29 Docusate Sodium 100 mg BID PO Last administered on 12/23/24at 08:08; Start 12/22/24 at 09:00; Stop 01/21/25 at 08:59 Ketorolac Tromethamine 15 mg Q8H IV Last administered on 12/22/24at 10:17; Start 12/22/24 at 07:30; Stop 12/22/24 at 16:08; Status DC Aspirin 325 mg DAILY PO Last administered on 12/23/24at 08:10; Start 12/23/24 at 09:00; Stop 01/22/25 at 08:59 Potassium Chloride 100 ml @ 100 mls/hr AD PRN IV; Start 12/22/24 at 07:30; Stop 01/21/25 at 07:29 Potassium Chloride 20 meq AD PRN PO; Start 12/22/24 at 07:30; Stop 01/21/25 at 07:29 Potassium Chloride 20 meq AD PRN PO; Start 12/22/24 at 07:30; Stop 01/21/25 at 07:29 Tramadol HCl 50 mg Q6H PRN PO; Start 12/22/24 at 07:30; Stop 12/27/24 at 07:29 Acetaminophen/ Hydrocodone Bitart Q4H PRN PO; Start 12/22/24 at 07:30; Stop 12/22/24 at 07:53; Status DC Carvedilol 25 mg BID PO Last administered on 12/23/24at 08:09; Start 12/22/24 at 09:00; Stop 01/21/25 at 08:59 Celecoxib 200 mg AM PO; Start 12/22/24 at 09:00; Stop 01/21/25 at 08:59 Losartan Potassium 100 mg AM PO Last administered on 12/23/24at 08:10; Start 12/22/24 at 09:00; Stop 01/21/25 at 08:59 Amlodipine Besylate 10 mg BID PO Last administered on 12/23/24at 08:10; Start 12/22/24 at 09:00; Stop 01/21/25 at 08:59 Home Med Chlorthalidone 25 MG AM PO; Start 12/22/24 at 09:00; Stop 01/21/25 at 08:59 Home Med Fluticasone Propion/ Salmeterol 1 PUFF BID PRN IH; Start 12/22/24 at 08:30; Stop 01/21/25 at 08:29 Atorvastatin Calcium 80 mg HS PO Last administered on 12/22/24at 20:19; Start 12/22/24 at 21:00; Stop 01/21/25 at 20:59 Albuterol Sulfate 2.5 mg Q4H PRN IH; Start 12/22/24 at 09:00; Stop 01/21/25 at 08:59 Home Med Vitamin D (10,000 UNIT) DAILY PO; Start 12/22/24 at 09:00; Stop 01/21/25 at 08:59 Ondansetron HCl 4 mg STK-MED ONCE .ROUTE; Start 12/22/24 at 07:30; Stop 12/22/24 at 07:30; Status DC Dexamethasone Sodium Phosphate 10 mg STK-MED ONCE .ROUTE; Start 12/22/24 at 07:30; Stop 12/22/24 at 07:30; Status DC Phenylephrine HCl 10 mg STK-MED ONCE IV; Start 12/22/24 at 07:46; Stop 12/22/24 at 07:46; Status DC Acetaminophen/ Hydrocodone Bitart 1 tab Q6H PRN PO; Start 12/22/24 at 08:00; Stop 12/27/24 at 07:59 Acetaminophen/ Hydrocodone Bitart 2 tab Q6H PRN PO Last administered on 12/23/24at 08:19; Start 12/22/24 at 08:00; Stop 12/27/24 at 07:59 Glycopyrrolate 1 mg STK-MED ONCE .ROUTE; Start 12/22/24 at 08:11; Stop 12/22/24 at 08:12; Status DC Rocuronium Viola 50 mg STK-MED ONCE .ROUTE; Start 12/22/24 at 08:21; Stop 12/22/24 at 08:21; Status DC Hydromorphone HCl 1 mg STK-MED ONCE .ROUTE Last administered on 12/22/24at 10:40; Start 12/22/24 at 10:13; Stop 12/22/24 at 10:13; Status DC Ketorolac Tromethamine 15 mg STK-MED ONCE .ROUTE; Start 12/22/24 at 10:14; Stop 12/22/24 at 10:15; Status DC Hydromorphone HCl 1 mg STK-MED ONCE .ROUTE Last administered on 12/22/24at 11:05; Start 12/22/24 at 10:33; Stop 12/22/24 at 10:34; Status DC Sodium Chloride 1,000 ml @ As Directed STK-MED ONCE IV; Start 12/22/24 at 11:16; Stop 12/22/24 at 11:16; Status DC Ketorolac Tromethamine 15 mg Q8H IV Last administered on 12/23/24at 02:13; Start 12/22/24 at 18:00; Stop 12/23/24 at 02:01; Status DC STEVIE GONZALES NP Dec 23, 2024 08:36
--- NOTE | 2024-12-23 12:15 | NUR ---
D/C PLAN CM spoke to patient regarding d/c planning. Patient lives with spouse. Reports he is independent with ADL's. Denies having any home services or DME. Patient reports he discussed plan with MD and prefers to return home with home health. Spouse to assist in care as needed. CM also discussed DME needs: [facility] and 11/29 [facility]. CM explained [facility] to contracted home health and DME company. CM also advised patient that [facility] may take more than 24 hours to approve services. Verbalized understanding. CM obtained [facility] for any in network home health and DME agency. CM to fax request to [facility] and follow up. Addendum: 12/23/24 at 1838 by EVELINA HERRMANN Amended: Links added.
[2024-12-23] MEDS: ketOROlac 15MG/ML VIAL (15MG/ML) IV PRN (13:18)
--- NOTE | 2024-12-23 15:00 | NUR ---
ORTHO COORDINATOR: TEACHING REGARDING DVT AND PNEUMONIA PREVENTION, PAIN EXPECTATIONS AND PAIN MANAGEMENT. PATIENT UP TO CHAIR, ICE PACK TO SURGICAL SITE. INCENTIVE SPIROMETER ON BEDSIDE TRAY, B SCD SLEEVES IN ROOM. SCD MACHINE IN ROOM. PATIENT RETURN DEMONSTRATED PROPER USE OF INCENTIVE SPIROMETER AND FREQUENCY OF USE. PATIENT RETURN DEMONSTRATED FOOT FLEXION AND EXTENSION EXERCISES. NUMERICAL PAIN SCALE REVIEWED. PATIENT REMINDED HE MUST CALL FOR PAIN MEDICATIONS. PATIENT INTENDS TO GO HOME WITH HOME HEALTH. WILL NEED WALKER AND 3-1 COMMODE. PATIENT ENCOURAGED TO CONTINUE PREMEDICATED PRIOR TO PHYSICAL THERAPY WHILE IN FACILITY AND TO CONTINUE ONCE DISCHARGED. PATIENT ENCOURAGED TO PREMEDICATE PRIOR TO PERIODS OF HIGH ACTIVITY WHILE AT HOME. PATIENT VERBALIZED UNDERSTANDING. PATIENT REPORTS PAIN UNDER CONTROL. PATIENT IS PASSING GAS, NO BOWEL MOVEMENT. NO ADDITIONAL QUESTIONS OR CONCERNS AT THIS TIME.
--- NOTE | 2024-12-23 18:38 | NUR ---
CM NOTE/[facility] CM attempted call to [facility] social welfare clerk, Loren, to verify that request for home health and DME was received. No answer, CM left voicemail for call back.
[2024-12-24 03:45] VITALS: BP 114/68; PULSE 86; RESP 18; TEMP 98.9
--- NOTE | 2024-12-24 06:49 | NUR ---
NURSE NOTE PATIENT UP TO CHAIR, SHOWERED, RT.HIP DSG DRY AND INTACT. USING WALKER FOR AMBULATION. RECEIVED PRN PAIN MEDICATION PO AND KETORADOL IV FOR BREAKTHROUGH PAIN. CALL HOBSON AT REACH.
[2024-12-24 08:00] VITALS: BP 105/58; PULSE 73; RESP 20; TEMP 99.5; O2SAT 98
[2024-12-24 12:01] VITALS: BP 111/60; PULSE 70; RESP 20; TEMP 98.5
[2024-12-24] MEDS ORDERED: ASPI-891 PO (14:41)
[2024-12-24] MEDS ORDERED: GABA100C PO (14:41)
[2024-12-24] MEDS ORDERED: DOCU-116 PO (14:41)
[2024-12-24] MEDS ORDERED: CYCL-309 PO (14:41)
[2024-12-24] MEDS ORDERED: HYDR-4060 PO (14:41)
--- NOTE | 2024-12-24 15:30 | NUR ---
ORTHO COORDINATOR: REINFORCED TEACHING. PATIENT UP TO CHAIR, IN STREET CLOTHES. WALKER AND 3-1 COMMODE DELIVERED TO ROOM. PATIENT INSTRUCTED TO CONTINUE INCENTIVE SPIROMETRY AND FOOT FLEXION/EXTENSION EXERCISES ONCE DISCHARGED. ENCOURAGED TO CONTINUE PREMEDICATION PRIOR TO PHYSICAL THERAPY AND DURING PERIODS OF HIGH ACTIVITY. PATIENT VERBALIZED UNDERSTANDING. NO ADDITIONAL QUESTIONS/CONCERNS AT THIS TIME.
[2024-12-24 16:00] VITALS: BP 123/71; PULSE 83; RESP 18; TEMP 98.4
[2024-12-25] MEDS ORDERED: BisaCODYL 10 MG SUPP.RECT RC PRN (07:30)
== END 2024-12-24 19:10 | disposition home or self-care (01) ==
LOC: DAH 05:42 → DAHIP 05:43 → 4DH 11:30
PROVIDERS: ADMIT Student in an Organized Health Care Education/Training Program; ATTEND Student in an Organized Health Care Education/Training Program
DX: M16.0 Bilateral primary osteoarthritis of hip (principal); G89.18 Other acute postprocedural pain; D62 Acute posthemorrhagic anemia; E78.5 Hyperlipidemia, unspecified; I10 Essential (primary) hypertension; J45.909 Unspecified asthma, uncomplicated; G47.33 Obstructive sleep apnea (adult) (pediatric); M10.9 Gout, unspecified; E66.9 Obesity, unspecified; Z68.42 Body mass index [BMI] 45.0-49.9, adult; Z79.899 Other long term (current) drug therapy
CPT/HCPCS: 84134; 86140; 36415 ×2; 87641; 64473; 27130; 96374; 96376 ×3; 96375; 73503; 73521 ×2; 97161; 97116 ×4; 97530 ×7; 94640; 80048; 85027; G0378 ×57; A4663; C1776; J7120; J3490 ×9; J3010; J1171 ×2; J1100; J7030; J2704; J2405; J2795; J1885 ×5; J2371; J0690 ×3; A4649 ×2; A4930; A6255; A5120; A4215; A4223; A4222; A4221

== ENCOUNTER 2025-05-20 09:28 | Observation (INO) | payer OTHER ==
[2025-05-19 11:04] VITALS: BP 140/88; PULSE 70; RESP 18; TEMP 97.9
[2025-05-19 11:09] LABS: IMMATURE GRANULOCYTE ABSOLUTE 0.02 K/uL (0-1); NUCLEATED RED BLOOD CELLS 0.0 % (0.0-0.19); PLATELET COUNT (AUTO) 280 K/uL (130-400); RED BLOOD CELL COUNT(AUTO) 5.10 MIL/uL (4.50-6.20); RED CELL DISTRIBUTION WIDTH 13.7 % (11.0-15.5); WHITE BLOOD COUNT (AUTO) 5.2 K/uL (4.8-10.8)
--- NOTE | 2025-05-19 11:20 | NUR ---
RE: IS INITIAL IS INITIAL TEACHING DONE BY RT PAT DURING PREOP.
[2025-05-19 11:22] LABS: CREATININE 0.7 mg/dL (0.5-1.3); GLOMERULAR FILTR. RATE CALC 114.0 mL/min (>90); GLUCOSE,RANDOM 118.0 mg/dL (70-105); SODIUM SERUM 140.0 mmol/L (136-145); UREA NITROGEN, BLOOD 16.0 mg/dL (7-18)
[2025-05-19 11:54] LABS: INR 1.01 (0.85-1.15)
[~2025-05-20] VITALS: Ht 167.6 cm; Wt 117.8 kg
[2025-05-20] VITALS (26 sets, daily range): BP systolic 96–160; BP diastolic 50–100; PULSE 54–88; RESP 17–21; TEMP 97.5–98.1; O2SAT 98
[~2025-05-20 09:28] MED LIST changes: +ALBU18HF7 IH; -FLUT1BLS12 IH; +GABA300C PO; -NALO4SPR NS; -albuterol IH; -buprenorphine TP; -ketorolac INJ; -vitamin d PO
[2025-05-20] MEDS: GABAPENTIN 300 MG CAPSULE ONE (09:39)
[2025-05-20] MEDS: GABAPENTIN 300 MG CAPSULE PO ONE (09:39)
[2025-05-20] MEDS: LACTATED RINGERS 1000ML 1,000 ML IV ONE (10:04)
[2025-05-20] MEDS ORDERED: LIDOCAINE PF 100MG/5ML (2%) SYRINGE 5ML ONE (11:01)
[2025-05-20] MEDS: FAMOTIDINE 20MG VIAL IV ONE (11:47)
[2025-05-20] MEDS ORDERED: MIDAZOLAM HCL 1 MG/ML 2ML VIAL ONE (12:01)
[2025-05-20] MEDS: TRANEXAMIC ACID 1000MG/10ML ONE (12:30)
[2025-05-20] MEDS ORDERED: GLYCOPYRROLATE 0.2 MG/ML 5 ML VIAL ONE (12:31)
[2025-05-20] MEDS ORDERED: NEOSTIGMINE METHYLSULFATE 1MG/ML IV ONE (12:31)
[2025-05-20] MEDS ORDERED: CALCIUM CARB 500MG PO PRN (15:00)
[2025-05-20] MEDS ORDERED: PoTASSium chl 10% ELIXIR 20MEQ 20 MEQ/15 ML UDCUP PO PRN (15:00)
[2025-05-20] MEDS ORDERED: FERROUS FUMARATE 324 MG TABLET PO PRN (15:00)
[2025-05-20] MEDS ORDERED: PoTASSium chloRIDE 20MEQ ER 20 MEQ ERTAB PO PRN (15:00)
[2025-05-20] MEDS ORDERED: ALBUTEROL INHALER 90MCG/INH IH PRN (15:00)
[2025-05-20] MEDS: SUGAMMADEX SODIUM 200 MG/2 ML VIAL IV ONE (16:21)
[2025-05-20] MEDS: 0.9%NACL 1000ML 1,000 ML IV SCH (16:23)
--- NOTE | 2025-05-20 16:28 | NUR ---
RECD PT FROM RECOVERY VIA BED; CONNECTED TO VS MACHINE; PT AXO X4; NO RESP DISTRESS NOTED; ON 2L NC; INCISION LEFT HIP CDI; NO SHADOWING NOTED; PT IS DUE TO VOID SCDS NOTED BILAT; C/O PAIN TO LEFT HIP; 1644 ICE APPLED TO LEFT HIP ORDERD; AND PENDING TO ADM PAIN MEDS AVAILABLE FOR PT Addendum: 05/20/25 at 1937 by AARON SANFORD RN RN Amended: Links added.
--- NOTE | 2025-05-20 16:44 | HMCIMG ---
EXAM: CR right Hip, 2 View. CLINICAL HISTORY: S/P HIP SURGERY; COMPARING RT vs LT COMPARISON: None provided. FINDINGS: Left total knee arthroplasty is in near anatomic alignment with no periprosthetic fracture appreciated. Appropriate postsurgical changes around the left hip joint. Right total hip arthroplasty appears in near-anatomic alignment. Small radiopacities overlying the medial soft tissues of the proximal bilateral may be external. Clinical correlation is advised. IMPRESSION: 1. No acute findings. 2. Bilateral total hip arthroplasties in near-anatomic alignment. /[place]
--- NOTE | 2025-05-20 17:15 | NUR ---
BP noted to be 160/101. Hold PT eval. Addendum: 05/20/25 at 1722 by DON CORTEZ PT Amended: Links added.
[2025-05-20] MEDS: HYDROcodone/APAP 5/325 1 TAB TABLET PO PRN (17:21)
--- NOTE | 2025-05-20 17:43 | DS ---
Discharge Summary Hospital Course Summary: The patient was admitted to the hospital postoperatively on 05/20/2025 after undergoing left total hip arthroplasty. They did well with routine postoperative pain control. They worked well with physical therapy. They developed some acute blood loss anemia but remained asymptomatic. The hospital course was otherwise uncomplicated. They were subsequently able to be discharged on postoperative day 2 once discharge arrangements were made with home health physical therapy. Looper Fixer(s): None Procedure(s): Left total hip arthroplasty, 05/20/2025 Assessment/Plan: ASSESSMENT: Status post left total hip arthroplasty Acute blood loss anemia, asymptomatic PLAN: See discharge instructions Discharge Instructions: Begin working with home health physical therapy. Remembered do not flex the hip more than 90 and do not cross midline at the knees or ankles for the 1st six weeks. If you are side sleeper place a pillow between the knees and ankles to prevent the legs from crossing. Dressing may be removed 05/22/2025 and left open to air. Showers ok allowing soap and water to run over the wound. Pat dry. Do not submerge wound in tub/pool. Do not apply ointments. Do not apply Betadine. Do not apply peroxide. Ice packs to decrease pain/swelling. Prescriptions have been sent to the pharmacy: *[place] 5/325mg 1-2 tab every 6 hours as needed for severe pain. (please call for refills) Cyclobenzaprine 5mg 1 tab every 8 hours as needed for muscle spasm pain. Gabapentin 100mg 1 tab every 8 hours (may discontinue if drowsy). Colace 100mg 1 tab orally twice a day as needed for constipation. Aspirin 325mg for 30 days to prevent blood clots. Follow up visit scheduled on 06/10/2025 at 9:30 AM at [facility]. Home Medications: Active Scripts Hydrocodone/Acetaminophen (Hydrocodon-Acetaminophen 5-325) 5 Mg-325 Mg Tablet, 1-2 TAB PO Q6HPRN PRN for post op pain, #56 TAB 0 Refills Prov:HALIE QUINONEZ MD 05/22/25 Reported Medications Albuterol Sulfate (Ventolin Hfa) 90 Mcg Hfa.aer.ad, 2 PUFF IH Q4HPRN PRN for SHORTNESS OF BREATH, INHALER 05/19/25 Amlodipine Besylate (Amlodipine Besylate) 10 Mg Tablet, 10 MG PO BID, TAB 0 Refills 05/19/25 Gabapentin (Neurontin) 300 Mg Capsule, 300 MG PO HS, CAP 05/19/25 Celecoxib (Celecoxib) 200 Mg Capsule, 200 MG PO AM, CAP 12/17/24 Chlorthalidone (Chlorthalidone) 25 Mg Tablet, 25 MG PO AM, TAB 01/30/24 Losartan Potassium (Losartan Potassium) 100 Mg Tablet, 100 MG PO AM, TAB 08/01/23 Rosuvastatin Calcium (Rosuvastatin Calcium) 40 Mg Tablet, 20 MG PO HS, TAB 03/30/23 Carvedilol (Carvedilol) 25 Mg Tablet, 25 MG PO BID, TAB 05/19/22 Discontinued Reported Medications [albuterol] No Conflict Check, 2 PUFF IH AD PRN for SHORTNESS OF BREATH/WHEEZING 12/17/24 Amlodipine Besylate (Amlodipine Besylate) 10 Mg Tablet, 10 MG PO BID for 30 Days, #30 TAB 0 Refills 12/17/24 Discontinued Scripts Docusate Sodium (Colace) 100 Mg Capsule, 1 CAP PO BID for 30 Days, #60 CAP 0 Refills Prov:HALIE QUINONEZ MD 12/24/24 Hydrocodone/Acetaminophen (Hydrocodon-Acetaminophen 5-325) 5 Mg-325 Mg Tablet, 1-2 TAB PO Q6H PRN for SEVERE PAIN (7-10), #56 TAB 0 Refills Prov:HALIE QUINONEZ MD 12/24/24 Gabapentin (Neurontin) 100 Mg Capsule, 100 MG PO TID, #90 CAP 0 Refills Prov:HALIE QUINONEZ MD 12/24/24 Cyclobenzaprine HCl (Cyclobenzaprine HCl) 10 Mg Tablet, 5 MG PO Q8H PRN for MUSCLE SPASMS, #45 TAB 0 Refills Prov:HALIE QUINONEZ MD 12/24/24 Aspirin (Aspirin EC) 325 Mg Tablet., 325 MG PO DAILY, #30 TAB 0 Refills Prov:HALIE QUINONEZ MD 12/24/24 HALIE QUINONEZ MD May 20, 2025 17:43
--- NOTE | 2025-05-20 17:52 | OP ---
Operative Note: DATE OF PROCEDURE: 05/20/25 SURGEON: HALIE QUINONEZ MD VOICE TEACHER: Anthony Gleason ANESTHESIA: General and fascia iliaca block ANESTHESIOLOGIST/SALES ACCOUNT LEADER: Dolly Calvin PREOPERATIVE DIAGNOSIS: Left hip osteoarthritis POSTOPERATIVE DIAGNOSIS: Left hip osteoarthritis PROCEDURE: Left total hip arthroplasty ESTIMATED BLOOD LOSS: 200 cc INDICATIONS: 49-year-old male with left hip osteoarthritis failing conservative management. After discussion of the risks, benefits, and alternatives, the patient voluntarily agreed to undergo the aforementioned procedure. IMPLANTS: López [employer] Nephew 56 mm R3 acetabular component with 6.5 mm screws x2 and central hole cover, 0 degree XLPE polyethylene liner, size six standard offset anthology stem with a 40 mm Oxinium -4 mm head DESCRIPTION OF PROCEDURE: Patient was properly identified in the preoperative holding area. Surgical site marking was verified and surgery consent reviewed. The patient was then taken to the operating room and placed in supine position on the OR table. After induction of general anesthesia, preoperative antibiotics were given. The patient was then transitioned in the lateral decubitus position with the left side up. All bony prominences were well-padded. Left lower extremity was then prepped and draped in the usual sterile fashion. Surgical time out was done verifying correct surgery, side, site, and location to be performed. We then began the procedure by making approximately 15 cm long incision centered over the greater trochanter. Here we came sharply through skin down to the fascia. Hemostasis was then achieved using Bovie electrocautery. We then incised fascia in line with the skin incision and finger split the tensor muscle proximally. We then placed our Charnley retractor. At this point we identified the vastus ridge and began elevating the full-thickness soft tissue flap off of the vastus ridge, splitting the vastus lateralis and gluteus muscles as necessary. We then proceeded to externally rotate the femur while making this flap. We resected part of the anterior capsule. The femoral head and neck was then delivered into view. We then dislocated the hip and performed a femoral neck osteotomy approximately half a fingerbreadth proximal to lesser trochanter. We then placed our retractors around the superior and anterior portion of the acetabulum and began to remove the labrum circumferentially. We then began reaming the acetabulum where we reamed up to a size 55 ensuring appropriate anteversion and abduction. We then proceeded to trial with the size 55 acetabular component and this appeared to sit well. We opened our size 56 acetabular component and after irrigating out the wound malleted this into place. It appeared to have good press-fit however we elected to place two of the 6.5 mm screws. We drilled and filled the screws in standard fashion in the posterior superior portion of the cup. We then placed the manhole cover on the center of the cup. The wound was thoroughly irrigated out further and we placed the acetabular liner and impacted this in place in standard fashion. We then proceeded to reposition our retractors to elevate the proximal femur out of the wound. We then used the box chisel and canal finder to began preparing the femoral side and sequentially broached up to the aforementioned size stem. Once we felt we had good fit, fill, and control of the femur with the stem in place we then used our trial head component and reduced the hip. Upon reduction, we had appropriate soft tissue tensioning, limb length and stable range of motion. On fluoroscopy, we noted a few mm lengthening on the operative leg. We therefore dislocated the hip once more removed our trial components thoroughly irrigated the out the wound and placed our final stem component in standard fashion. We noted that the stem did not sit flush with the bone length the trial did so we trialed once more using the -4 mm head. This felt more appropriate on reduction so we implanted a -4 mm head final component. The hip was then reduced with the final components in place. It was found to be stable through range of motion with appropriate soft tissue tensioning and appropriate limb length. At this point we placed a bump under the knee and the foot on the male with a stack of towels to allow for internal rotation. We repaired the abductors back to the greater trochanter using #5 Ethibond. We then repaired the rent in the vastus lateralis and gluteus muscles using #1 Vicryl in a running fashion. We removed our Charnley retractor and began to repair the IT band using #1 Vicryl in interrupted [id number] fashion. At this point we began to close her subcutaneous tissue using 2-0 Vicryl. Running 3-0 Monocryl in subcuticular fashion with Dermabond placed over this for the skin. Island barrier dressing was then applied. Patient was returned to supine position, awakened from a nesthesia, and taken to the recovery room in stable condition. HALIE QUINONEZ MD May 20, 2025 17:52
[2025-05-20] MEDS: GABAPENTIN 300 MG CAPSULE PO SCH (22:23)
[2025-05-20] MEDS: amLODIPine 5 MG TAB PO SCH (22:23)
[2025-05-21 03:40] LABS: NUCLEATED RED BLOOD CELLS 0.0 % (0.0-0.19); PLATELET COUNT (AUTO) 261.0 K/uL (130-400); RED BLOOD CELL COUNT(AUTO) 4.36 MIL/uL (4.50-6.20); RED CELL DISTRIBUTION WIDTH 13.6 % (11.0-15.5); WHITE BLOOD COUNT (AUTO) 9.5 K/uL (4.8-10.8)
[2025-05-21 04:00] VITALS: BP 123/68; PULSE 63; RESP 17; TEMP 97.4
[2025-05-21 04:10] LABS: CREATININE 0.8 mg/dL (0.5-1.3); GLOMERULAR FILTR. RATE CALC 109.0 mL/min (>90); GLUCOSE,RANDOM 143.0 mg/dL (70-105); SODIUM SERUM 136.0 mmol/L (136-145); UREA NITROGEN, BLOOD 19.0 mg/dL (7-18)
--- NOTE | 2025-05-21 06:00 | NUR ---
PATIENT INSTRUCTED ON MD ORDERS OF GETTING UP BEFORE BREAKFAST, PATIENT STATED THAT HE WOULD FEEL MUCH SAFER IF PHYSIAL THERAPY GOT HIM UP FOR THE FIRST TIME
[2025-05-21 07:33] VITALS: BP 105/62; PULSE 71; RESP 18; TEMP 97.9
--- NOTE | 2025-05-21 08:17 | PN ---
Ortho postop day one. This morning patient is awake alert and oriented. He understands that I would like for him to spend most of the time out of bed she is waiting for physical therapy to ambulate him today. He did not have the opportunity to ambulate yesterday. Reports adequate pain control but did state that last night was a little rougher than his contralateral extremity surgery. Currently doing better. Vital signs stable. Afebrile. Voiding on his own. He is passing gas. Laboratory results reviewed noted to have a drop in hemoglobin and hematocrit as expected after total hip arthroplasty. Patient currently is asymptomatic we will continue to observe and treat per protocol as necessary. Reinforced incentive spirometry. SCD sleeves currently on. Dressing is intact. The distal neurovascular exam is intact. Gastrocnemius a soft nontender. Negative Homans. Anticipated discharge plan is home health/PT the patient is requesting Agency named nurses that care. Assessment: Status post left total hip arthroplasty. Acute postoperative blood loss anemia. Plan: Continue with Dr. Marques's total hip arthroplasty protocol and discharge planning. Acute postoperative blood loss anemia addressed with protocol as necessary Vitals/Labs Vital Signs Date Time Temp Pulse Resp B/P (MAP) Pulse Ox O2 Delivery O2 Flow Rate FiO2 05/21/25 07:33 97.9 71 18 105/62 98 Room Air 05/21/25 04:00 3.0 28 Laboratory Tests 05/21/25 03:08 Medications Current Medications Gabapentin 300 mg ONCE ONCE PO Last administered on 05/20/25at 09:39; Start 05/20/25 at 09:30; Stop 05/20/25 at 09:31; Status DC Cefazolin Sodium 2 gm STK-MED ONCE .ROUTE Last administered on 05/20/25at 12:40; Start 05/20/25 at 09:23; Stop 05/20/25 at 09:24; Status DC Lactated Ringer's 1,000 ml @ As Directed STK-MED ONCE IV Last administered on 05/20/25at 10:04; Start 05/20/25 at 09:24; Stop 05/20/25 at 09:24; Status DC Gabapentin 300 mg STK-MED ONCE .ROUTE; Start 05/20/25 at 09:36; Stop 05/20/25 at 09:36; Status DC Lidocaine HCl 100 mg STK-MED ONCE .ROUTE; Start 05/20/25 at 11:01; Stop 05/20/25 at 11:02; Status DC Propofol 200 mg STK-MED ONCE IV; Start 05/20/25 at 11:01; Stop 05/20/25 at 11:02; Status DC Rocuronium [place] 50 mg STK-MED ONCE .ROUTE; Start 05/20/25 at 11:02; Stop 05/20/25 at 11:02; Status DC Fentanyl Citrate 100 mcg STK-MED ONCE .ROUTE; Start 05/20/25 at 11:02; Stop 05/20/25 at 11:02; Status DC Ropivacaine 150 mg STK-MED ONCE .ROUTE; Start 05/20/25 at 11:03; Stop 05/20/25 at 11:03; Status DC Acetaminophen 100 ml @ As Directed STK-MED ONCE .ROUTE; Start 05/20/25 at 11:47; Stop 05/20/25 at 11:47; Status DC Famotidine 20 mg STK-MED ONCE IV; Start 05/20/25 at 11:47; Stop 05/20/25 at 11:47; Status DC Ketamine HCl 50 mg STK-MED ONCE .ROUTE; Start 05/20/25 at 11:51; Stop 05/20/25 at 11:51; Status DC Midazolam HCl 2 mg STK-MED ONCE .ROUTE; Start 05/20/25 at 12:01; Stop 05/20/25 at 12:01; Status DC Ondansetron HCl 4 mg STK-MED ONCE .ROUTE; Start 05/20/25 at 12:23; Stop 05/20/25 at 12:23; Status DC Dexamethasone Sodium Phosphate 10 mg STK-MED ONCE .ROUTE; Start 05/20/25 at 12:23; Stop 05/20/25 at 12:23; Status DC Tranexamic Acid 1,000 mg STK-MED ONCE .ROUTE Last administered on 05/20/25at 12:30; Start 05/20/25 at 12:28; Stop 05/20/25 at 12:29; Status DC Glycopyrrolate 1 mg STK-MED ONCE .ROUTE; Start 05/20/25 at 12:31; Stop 05/20/25 at 12:31; Status DC Neostigmine Methylsulfate 10 mg STK-MED ONCE IV; Start 05/20/25 at 12:31; Stop 05/20/25 at 12:31; Status DC Rocuronium [place] 50 mg STK-MED ONCE .ROUTE; Start 05/20/25 at 12:33; Stop 05/20/25 at 12:33; Status DC Phenylephrine HCl 10 mg STK-MED ONCE IV; Start 05/20/25 at 12:39; Stop 05/20/25 at 12:39; Status DC Sodium Chloride 1,000 ml @ 100 mls/hr Q10H IV Last administered on 05/20/25at 16:23; Start 05/20/25 at 15:00; Stop 05/21/25 at 14:59 Polyethylene Glycol 17 gm DAILY PO; Start 05/21/25 at 09:00; Stop 06/20/25 at 08:59 Bisacodyl 10 mg DAILY PRN RC; Start 05/23/25 at 15:00; Stop 06/22/25 at 14:59 Ketorolac Tromethamine 15 mg Q6H PRN IV; Start 05/21/25 at 15:00; Stop 05/26/25 at 14:59 Ferrous Fumarate 324 mg DAILY PRN PO; Start 05/20/25 at 15:00; Stop 06/19/25 at 14:59 Calcium Carbonate 500 mg Q12H PRN PO; Start 05/20/25 at 15:00; Stop 06/19/25 at 14:59 Ondansetron HCl 4 mg Q6H PRN IVP; Start 05/20/25 at 15:00; Stop 06/19/25 at 14:59 Cefazolin Sodium 2 gm Q8H IVP Last administered on 05/21/25at 04:34; Start 05/20/25 at 20:00; Stop 05/21/25 at 04:01; Status DC Gabapentin 100 mg TID PO Last administered on 05/20/25at 22:23; Start 05/20/25 at 21:00; Stop 06/19/25 at 20:59 Cyclobenzaprine HCl 5 mg Q8H PRN PO; Start 05/20/25 at 15:00; Stop 06/19/25 at 14:59 Docusate Sodium 100 mg BID PO Last administered on 05/20/25at 22:23; Start 05/20/25 at 21:00; Stop 06/19/25 at 20:59 Ketorolac Tromethamine 15 mg Q8H IV Last administered on 05/21/25at 06:24; Start 05/20/25 at 15:00; Stop 05/21/25 at 07:01; Status DC Aspirin 325 mg DAILY PO; Start 05/21/25 at 09:00; Stop 06/20/25 at 08:59 Potassium Chloride 100 ml @ 100 mls/hr AD PRN IV; Start 05/20/25 at 15:00; Stop 06/19/25 at 14:59 Potassium Chloride 20 meq AD PRN PO; Start 05/20/25 at 15:00; Stop 06/19/25 at 14:59 Potassium Chloride 20 meq AD PRN PO; Start 05/20/25 at 15:00; Stop 06/19/25 at 14:59 Tramadol HCl 50 mg Q6H PRN PO Last administered on 05/20/25at 18:43; Start 05/20/25 at 15:00; Stop 05/25/25 at 14:59 Acetaminophen/ Hydrocodone Bitart Q4H PRN PO Last administered on 05/21/25at 06:24; Start 05/20/25 at 15:00; Stop 05/25/25 at 14:59 Carvedilol 25 mg BID PO Last administered on 05/20/25at 22:24; Start 05/20/25 at 21:00; Stop 06/19/25 at 20:59 Gabapentin 300 mg HS PO Last administered on 05/20/25at 22:23; Start 05/20/25 at 21:00; Stop 06/19/25 at 20:59 Losartan Potassium 100 mg AM PO; Start 05/21/25 at 09:00; Stop 06/20/25 at 08:59 Albuterol Sulfate 2 PUFFS Q4HPRN PRN IH; Start 05/20/25 at 15:00; Stop 06/19/25 at 14:59 Amlodipine Besylate 10 mg BID PO Last administered on 05/20/25at 22:23; Start 05/20/25 at 21:00; Stop 06/19/25 at 20:59 Hydrochlorothiazide 25 mg AM PO; Start 05/21/25 at 09:00; Stop 06/20/25 at 08:59 Atorvastatin Calcium 40 mg HS PO Last administered on 05/20/25at 22:23; Start 8/20/25 at 21:00; Stop 06/19/25 at 20:59 Dexmedetomidine HCl 200 mcg STK-MED ONCE IV; Start 05/20/25 at 14:48; Stop 05/20/25 at 14:48; Status DC STEVIE GONZALES NP May 21, 2025 08:16
[2025-05-21 09:00] VITALS: O2SAT 98
[2025-05-21] MEDS: CYCLOBENZAPRINE HCL 10 MG TABLET PO PRN (09:06)
[2025-05-21] MEDS: ASPIRIN 325MG EC TAB PO SCH (09:07)
--- NOTE | 2025-05-21 11:00 | NUR ---
[facility] CM MET WITH PT INITIAL ASSESSMENT DONE. PATIENT IS INDEPENDENT PRIOR TO ADMISSION, LIVES AT HOME WITH SPOUSE AND CHILDREN. PATIENT HAS A WALKER, BEDSIDE COMMODE, CPAP, BPM. DENIES ANY OTHER EQUIPMENT/SERVICES. FEELS SAFE TO GO BACK HOME, STILL DRIVE AND WORK PRIOR TO SURGERY, SPOUSE ABLE TO ASSIST WITH TRANSPORTATION AND NEEDS NECESSARY. DISCUSSED MD RECOMMENDATIONS FOR HOME W/HH FOR PT, PT AGREEABLE, CONSENT SIGNED [facility] FOR [place] ASSIGNED HOME HEALTH/NURSES THAT CARE. DC PLAN TO HOME W/HH ONCE APPROVED. CM TO CONTINUE TO FOLLOW UP. Addendum: 05/21/25 at 1536 by JULIO VOGEL LVN CM Amended: Links added.
[2025-05-21 11:48] VITALS: BP 95/61; PULSE 68; RESP 18; TEMP 98
--- NOTE | 2025-05-21 13:53 | HMCIMG ---
Intraoperative fluoroscopic assessment of the left hip INDICATION: Left hip fracture COMPARISON: None available Fluoroscopy time: 7.6 seconds. FINDINGS: 5 images demonstrate interval left hip arthroplasty of left fracture IMPRESSION: Open reduction and internal fixation of left hip. Details of the finding in the operative notes
[2025-05-21 15:24] VITALS: BP 125/77; PULSE 90; RESP 18; TEMP 98
--- NOTE | 2025-05-21 16:50 | NUR ---
ORTHO COORDINATOR: TEACHING REGARDING DVT AND PNEUMONIA PREVENTION, PAIN EXPECTATIONS AND PAIN MANAGEMENT. PATIENT IN BED, EATING DINNER. B SCD SLEEVES IN PLACE AND FUNCTIONING. INCENTIVE SPIROMETER AT BEDSIDE. PATIENT VERBALIZED FREQUENCY OF USE. PATIENT PAIN CONTROLLED TODAY. REPORTS PASSING GAS. PATIENT INTENDS TO DISCHARGE HOME WITH HOME HEALTH PHYSICAL THERAPY. PATIENT UTILIZED HOME HEALTH AFTER DISCHARGE FROM [facility] IN NOVEMBER 2024. ENCOURAGED PATIENT TO CONTINUE PREMEDICATION PRIOR TO THERAPY AND DURING PERIODS OF HIGH ACTIVITY, TO CONTINUE USE OF INCENTIVE SPIROMETER UNTIL PRE-SURGERY ACTIVITY ACHIEVED, TO CONTINUE FOOT FLEXION/EXTENSION EXERCISES ONCE DISCHARGED. PATIENT UTILIZING [facility], NOT [facility]. NO ADDITIONAL QUESTIONS OR CONCERNS AT THIS TIME.
[2025-05-21 20:00] VITALS: BP 114/61; PULSE 65; RESP 18; TEMP 98.1
[2025-05-22] VITALS (7 sets, daily range): BP systolic 99–140; BP diastolic 60–85; PULSE 70–83; RESP 16–18; TEMP 97.8–98.8; O2SAT 97
--- NOTE | 2025-05-22 19:35 | NUR ---
MD ROUNDS DR. QUINONEZ TO SEE AND EXAMEN PATIENT WITH ORDERS, ORDERS TO DISCHARGE [facility]
[2025-05-22] MEDS ORDERED: CYCL-309 PO (19:48)
[2025-05-22] MEDS ORDERED: GABA100C PO (19:48)
[2025-05-22] MEDS ORDERED: HYDR-4060 PO (19:48)
[2025-05-22] MEDS ORDERED: DOCU-116 PO (19:48)
[2025-05-22] MEDS ORDERED: ASPI-891 PO (19:48)
--- NOTE | 2025-05-22 20:15 | NUR ---
DISCHARGE INSTRUCTIONS, DISCHARGE INSTRUCTIONS GIVEN TO PATIENT, VERBALIZES UNDERSTANDING VIA TEACH BACK, SALINE LOCK DISCONTINUED RIGHT HAND, NO REDNESS OR DRAINAGE NOTED, APPLY 2X2 AND PAPER TAPE, TOLERATED WELL, PER DEVI RAMOS INSTRUCTED PATIENT TO REMOVE DRESSING TONIGHT WHEN HE GETS HOME
--- NOTE | 2025-05-22 20:30 | NUR ---
HOME MEDICATIONS HOME MEDICATIONS LOCKED UP IN PHARMACY, CHARGE NURSE GRACIE BENJAMIN RN PICKED UP PATIENTS HOME MEDICATIONS FROM PHARMACY AND RETURNED TO PATIENT , PERSONAL BELONGINGS WITH PATIENT , AWAITING FOR PATIENTS BROTHER COMING FROM [place] TO [place] PATIENT
--- NOTE | 2025-05-22 21:07 | NUR ---
DISCHARGE HOME DISCHARGE HOME WITH PATIENTS BROTHER VIA WHEELCHAIR, PERSONAL BELONGINGS AND HOME MEDICATIONS WITH PATIENT , NAD, NO C/O PAIN AT THIS TIME, DRESSING LEFT HIP D/I
--- NOTE | 2025-05-23 06:30 | NUR ---
HOMEHEALTH CALLED HOME HEALTH NURSES THAT CARE ANSWERING SERVICE TO GIVE REPORT, PER ANSWERING SERVICE NURSE HOG DRIVER WILL CALL BACK FOR REPORT
--- NOTE | 2025-05-23 15:10 | NUR ---
REPORT GIVEN TO NURSE SINGH FROM NURSES THAT CARE FOR THE DISCHARGED HOME PATIENT
== END 2025-05-22 21:07 | disposition home health service (06) ==
LOC: DAH 09:28 → DAHIP 09:29 → 4AH 16:15
PROVIDERS: ADMIT Student in an Organized Health Care Education/Training Program; ATTEND Student in an Organized Health Care Education/Training Program
DX: M16.12 Unilateral primary osteoarthritis, left hip (principal); D62 Acute posthemorrhagic anemia; I10 Essential (primary) hypertension; M10.9 Gout, unspecified; M25.552 Pain in left hip; Z79.899 Other long term (current) drug therapy; Z98.890 Other specified postprocedural states
CPT/HCPCS: 82040; 80048 ×2; 85025; 85610; 85730; 84134; 86140; 36415 ×2; 87641; 27130; 96376 ×3; 96365; 96375; 73503; 73521; 96366; 85027; 97161; 97116 ×4; 97530 ×4; G0378 ×54; A4663; C1776; J7120; J3490 ×7; J3010; J0690 ×3; J1100; J2003; J2250; J2704; J2405; J2710; J2795; J1885 ×5; J2371; A4649 ×3; A4930 ×2; A6255; A5120; A4215; A4223 ×2; A4213; A4222; A4221; A4216; J7030